=== PATIENT | male | born 1945 | race Caucasian/White ===

== ENCOUNTER → 2020-12-07 12:57 | Outpatient (BNVA) | payer MEDICARE, SELFPAY | PROVIDERS: Family Provider Family Medicine; PCP Family Medicine; Visit Provider Nurse Practitioner Family | DX: M79.671 Pain in right foot (principal) | CPT/HCPCS: 73630 ==

== ENCOUNTER → 2023-05-02 08:53 | Outpatient (BNVA) | payer MEDICARE, SELFPAY | PROVIDERS: Family Provider Family Medicine; PCP Family Medicine; Visit Provider Nurse Practitioner Family | DX: M17.12 Unilateral primary osteoarthritis, left knee (principal) | CPT/HCPCS: 73562 ==

== ENCOUNTER → 2023-05-30 16:06 | Outpatient (BNVA) | payer MEDICARE, SELFPAY | PROVIDERS: Family Provider Family Medicine; PCP Family Medicine; Visit Provider Specialist | DX: M17.0 Bilateral primary osteoarthritis of knee | CPT/HCPCS: 73560; 73565; 99204 ==

== ENCOUNTER → 2023-08-08 08:17 | Outpatient (BNVA) | payer MEDICARE, SELFPAY | PROVIDERS: Family Provider Family Medicine; PCP Family Medicine; Visit Provider Specialist | DX: M17.10 Unilateral primary osteoarthritis, unspecified knee (principal); M25.569 Pain in unspecified knee; Z01.818 Encounter for other preprocedural examination | CPT/HCPCS: 80053; 81000; 85025 ==

== ENCOUNTER 2023-08-09 16:19 | Outpatient (CLI) | payer MEDICARE, SELFPAY ==
--- NOTE | 2023-08-09 16:30 | CT_ITS ---
WS: [id number] CT LEFT knee, noncontrast HISTORY: M17.10 - Unilateral primary osteoarthritis, unspecified knee TECHNIQUE: Protocol for PAIGE total knee replacement has been obtained. This includes axial imaging th rough the LEFT hip, LEFT knee and LEFT ankle. DLP: 1091.72 mGy.cm COMPARISON: Radiograph 05/30/2023 Pelvis: Status post LEFT hip arthroplasty. Bilateral mild SI joint arthritis. LEFT knee: Advanced tricompartment osteoarthritic changes. Large osteophytes and joint space narrowin g. Small suprapatellar joint effusion. LEFT ankle: Negative. IMPRESSION: CT imaging provided for [facility] robotic total knee replacement.
== END 2023-08-09 16:20 | disposition home or self-care (01) ==
LOC: RAD 16:19
PROVIDERS: Family Provider Family Medicine; PCP Family Medicine; Visit Provider Nurse Practitioner
DX: M17.12 Unilateral primary osteoarthritis, left knee (principal); Z98.890 Other specified postprocedural states
CPT/HCPCS: 73700; 80053; 81000; 85025

== ENCOUNTER 2023-08-14 12:58 | Observation (INO) | payer MEDICARE, SELFPAY ==
[2023-08-14] VITALS (13 sets, daily range): BP systolic 72–168; BP diastolic 46–99; PULSE 52–73; RESP 16–22; TEMP 36.1–36.6; O2SAT 93–97; BMI 36.5
--- NOTE | 2023-08-14 06:37 | P.HPUD_ITS ---
Surgery/Procedure H&P Update DATE OF PROCEDURE: August 14, 2023 DATE H&P PERFORMED: 08/13/23 H&P UPDATE INFORMATION: I have reviewed H&P completed within last 30 days, I have examined patient prior to procedure, No changes to prior documentation and H&P is in [facility] EMR on date indicated PLANNED PROCEDURE: Operation Date: 08/14/23 07:00 Proposed Procedures p LEFT TOTAL KNEE ARHTROPLASTY 73077,M17.10(Left) - Aracelis Manzo MD Related Problem List Diagnoses (1) Primary osteoarthritis of left knee:
[2023-08-14] MEDS: sodium chloride 0.9% 1,000 ML 30 ML IV (07:05)
[2023-08-14] MEDS: acetaminophen 1,000 MG/100 ML PIGGYBACK 400 MG IV ×3 (07:07→22:34)
[2023-08-14] MEDS: gabapentin 300 mg Capsule PO (07:08)
[2023-08-14] MEDS: CELEcoxib 200 mg Capsule 400 MG PO (07:08)
[2023-08-14] MEDS: ceFAZolin 2,000 MG in sodium chloride 0.9% (plus) 50 ML 100 MG IV ×3 (07:17→23:01)
--- NOTE | 2023-08-14 08:03 | ANES.PREANE2 ---
Pre-Anesthetic Assessment Height/Weight: Height 1.73 m Weight 108.862 kg Temp Pulse Resp BP Pulse Ox O2 Del Method 97 F L 69 18 163/99 97 Room Air 08/14/23 06:11 08/14/23 06:11 08/14/23 06:11 08/14/23 06:11 08/14/23 06:11 08/14/23 06:17 Operation Date: 08/14/23 07:00 Proposed Procedures p LEFT TOTAL KNEE ARHTROPLASTY 57325,M17.10(Left) - Aracelis Manzo MD Was Beta Kamari taken within 24 hours: N/A Was Clonidine taken within 24 hours: N/A Last intake: Intake Last Liquid Date 08/13/23 Last Liquid Time 18:30 Last Solid Date 08/13/23 Last Solid Time 18:30 Social No tobacco Exam alert and oriented x 3 Airway Submandibular: within normal limits Cervical ROM: within normal limits Mallampati: Class II History/ROS No significant history except as noted and No significant complaints Pulmonary Sleep Apnea Uses CPAP CV/HEM Hypertension Metabolic Morbid Obesity Musc/skel Lower Back Pain and Osteoarthritis/DJD Hx lumbar spine surgery Anesthetic Plan ASA status: 3 Anesthesia: General and Regional (specify below) Other: Spinal w/ adductor canal block; general w LMA backup Risk of > 500 ml blood loss (7ml/kg in children): No Medications/Allergies Home Medications Medication Instructions Recorded Confirmed Last Taken Type ibuprofen 200 mg capsule 200 mg PO Q6H PRN Pain 11/16/20 08/13/23 08/09/23 History allopurinol 100 mg tablet 100 mg PO QDAY #100 tabs 03/28/23 08/13/23 08/13/23 Rx air mini auto set travel cpap #1 ea 06/19/23 Unknown Rx machine cpap hose tubing #1 ea 06/19/23 Unknown Rx zephair air mini universal adaptor #1 ea 06/19/23 Unknown Rx Heated moisture exchnge unit for cpap triamterene 37.5 1 tab PO QAM #100 tabs 07/18/23 08/13/23 08/13/23 Rx mg-hydrochlorothiazide 25 mg tablet losartan 25 mg tablet 25 mg PO DAILY 08/09/23 08/13/23 08/13/23 History Allergies Allergy/AdvReac Type Severity Reaction Status Date / Time No Known Allergies Allergy Verified 08/09/23 14:14 Current Medications Generic Name Dose Route Start Last Admin Trade Name Freq PRN Reason Stop Dose Admin Sodium Chloride 1,000 mls @ 30 mls/hr 08/14/23 06:00 08/14/23 07:05 Sodium Chloride 0.9% IV 08/15/23 05:59 30 mls/hr .Q24H JACEK Administration PFSH Anesthesia Medical History Hypertension Gout Surgical History History of meniscectomy of right knee H/O arthroscopy H/O total hip arthroplasty Family History Other Cancer Social History Smoking and tobacco/nicotine status: never used tobacco/nicotine Alcohol intake: current Alcohol intake frequency: few times a week Data Anesthesia Cardiac Studies: No Data to Display
[2023-08-14] MEDS: tranexamic acid 1,000 mg/10mL SDV 1000 MG IV (08:05)
[2023-08-14] MEDS: BUPivacaine liposome 13.3 mg/mL SDV 10 mL 266 MG INFILTRATI (08:23)
[2023-08-14] MEDS: BUPivacaine 0.5% INJ 30 mL 20 ML INJECTION (08:23)
[2023-08-14] MEDS: vancomycin 1,000 MG SDV 1000 MG XX (08:23)
[2023-08-14] MEDS: ceFAZolin 1,000 mg SDV 2000 MG IRRIGATION (08:24)
--- NOTE | 2023-08-14 11:37 | P.OP_ITS ---
Operative Report Date of procedure: August 14, 2023 Pre-op diagnosis: Severe degenerative osteophyte left knee with valgus deformity and osteophyte formation Post-op diagnosis: Severe degenerative osteophyte left knee with valgus deformity and osteophyte formation Post-op findings: Severe valgus deformity with flexion contracture. Complete denudement of cartilage particularly from the lateral femoral condyle consistent with valgus deformity. Procedure done: Left total knee arthroplasty with Eric guidance Implants: The [employer] total knee system with a size 6 triathlon beaded cruciate retaining femur left, a triathlon titanium tibial component size 6 beaded, a triathlon X3 tibial bearing CS insert size 6 X 9 mm and a beaded triathlon titanium asymmetric patella size 38 x 11 mm Specimens removed/disposition: Bone, disposed Surgeon: Aracelis Manzo MD Sports Marketing Specialist: Kirsten Barlow, nurse practitioner, services were required for exposure, retraction, implant placement, and closure. Anesthesia: Spinal (With MAC, ASA 3) Estimated blood loss (mL): 350 Tourniquet time (min): 0 (Not utilized) IV fluids (mL): 1,800 Urine output (mL): 200 Complications: None Findings: Severe degenerative osteoarthritis with valgus deformity and flexion contracture. Complete denudement of cartilage particularly from the lateral com partment. Condition: stable Disposition: PACU (Then to floor for postoperative rehabilitation and pain management) Brief History: This 78-year-old gentleman initially presented to my office in May 2023. Had severe left knee pain which was limiting him in his activities of daily living. He had had no recent injury, but he had had a prior anterior cruciate ligament tear. The patient described pain when standing from a kneeling position or doing any sort of twisting on the knee. He had participated at home physical therapy focusing on quad strength without relief. He denied any prior injection therapy. At the time of initial visit, he wished to consider injection therapy versus total knee arthroplasty as he had significant deformity and severe degenerative osteoarthritic changes. After consideration, the patient wished to proceed with total knee arthroplasty and he was scheduled for Eric guided total knee arthroplasty. Risks and complications were discussed with the patient. On the day of surgery, consents were signed and questions were further answered. He was seen with his . Procedure: The patient was brought to the operating theater, and after undergoing spinal anesthetic, with supplemental adductor canal block, ASA 3, the left lower extremity was prepped with Dura-Prep and draped in usual fashion following placement of a tourniquet high on the leg. The leg was then draped free.? Tourniquet was not elevated during the case.? A surgical pause was performed, and at the time of the surgical pause, we confirmed the site and side of surgery. Additionally, we confirmed the appropriate and timely administration of preoperative antibiotics, Ancef 2 g.? The availability of equipment was confirmed, and the patient's identity was verbalized as well.? Following the surgical pause, an incision was made centering over the patella continuing proximally and distally as necessary to allow access to the knee joint. Dissection continued through skin and soft tissues using a scalpel. Hemostasis was obtained using electrocautery. The skin incision was followed by a median parapatellar arthrotomy. The leg was extended and the patella was able to be displaced laterally.? Appropriate arrays and markers were placed in appropriate position for use of the Eric.? Preoperative planning had been accomplished and was discussed in detail with the [facility] physician relations representative.? Intraoperative mapping of the femur and tibia was accomplished after the arrays were placed.? Internal markers were also placed.? Once we had accomplished the Eric mapping, we began the appropriate resections for placement of the prosthesis.? The plan was for a cruciate retaining right total knee arthroplasty. Once appropriate mapping had been accomplished retraction was established using manual retraction by surgical technicians and also the Eric leg positioner and retractors.? The knee was evaluated.? There was significant osteoarthritic change as well as slight flexion contracture.? Appropriate bone resection was accomplished using the Eric.? The femur was sized to a size 6.? Following femoral cuts, attention was directed to the tibia to confirm appropriate size of the tibial tray. The tibial osteotomy had been initiated at the beginning of the Eric procedure, the proximal tibial resection was removed, and the proximal tibia was measured.? Osteophytes were removed prior to this portion of the procedure.? We had performed a minimal medial release at the beginning of the procedure to allow for placement of the array.? Proximal tibia was evaluated, and it was felt that appropriate size for the tibia was a size 6.? Tray was noted to fit nicely with good coverage.? Rim fit was accomplished with the size 6. A trial reduction was accomplished after osteophytes have been removed as well as the medial and lateral menisci.? We had removed the anterior cruciate ligament at the beginning of the case and preserved the posterior cruciate ligament.? Trial reduction was accomplished with a size 6 femoral cruciate retaining component and a size 6 CS tibial bearing insert which was 9 mm in thickness.? Alignment was felt to be appropriate as well.? Trial components were removed after the femur had been drilled.? Prior to removal of the tibial tray which had been pinned in position with appropriate rotation as determined by the Eric plan, we broached the tibia.? Subsequently, the 4 drill holes were made for the prosthetic component.? All trial components were removed, and the wound was irrigated.? Plans were made for insertion of the prosthetic components.? Prior to this, the patella was manually prepared.? After resection of the articular surface with the jogging system, it was measured and measured a 38 mm patella.? We resected approximately 11 mm of patella.? Patellar height was restored with the patellar component. Once again, the wound was irrigated.? The Tritanium tibia was impacted into position.? The beaded femur was then impacted into position in a cementless fashion. The CS tibial insert was placed prior to placement of the femoral component. The patella was pressed into position with a patellar clamp.? Exparel was injected about the components deep and superficially.? The knee was then copiously irrigated with betadine and saline and suctioned dry. Attention was then directed to closure. Closure was accomplished with 0 Vicryl in the fascial tissues.? The suture line of 0 Vicryl was supplemented with strata fix, #1, with a running stitch from proximal to distal and a second running stitch from distal to proximal.? This was followed by Surgiflo and vancomycin powder.? Following this, a 2-0 Monocryl was used in the subcutaneous tissues, and the skin was closed with 3-0 Strata fix.? Care was taken to assure an excellent subcutaneous as well as skin closure.? A sterile dressing was then placed consisting of Dermabond Prineo, OpSite, ABD, sterile soft roll, and an Lenny wrap including over the foot. The patient was returned the Recovery Room in a satisfactory condition. X-rays were obtained and reviewed there.? The patient will be discharged to the floor for postoperative rehabilitation and pain management. Related Problem List Diagnoses (1) Primary osteoarthritis of left knee:
--- NOTE | 2023-08-14 11:51 | XR_ITS ---
WS: [id number] XR knee LT 1-2V 03445 REASON FOR EXAM: Status post left total knee arthroplasty FINDINGS: Left total knee arthroplasty. Components of the arthroplasty are intact and in proper position and alignment. No focal bone abnormality. IMPRESSION: Left knee total arthroplasty without abnormality.
[2023-08-14] MEDS: chlorhexidine gluconate 0.12% Btl 473 mL 30 ML MUCOUS MEM ×2 (13:52→20:55)
[2023-08-14] MEDS: CELEcoxib 200 mg Capsule PO (15:02)
[2023-08-14] MEDS: tranexamic acid 1,000 MG/100 ML PREMIX 600 MG IV (16:06)
--- NOTE | 2023-08-14 16:54 | ANE.PACU2 ---
Inpatient post-anesthesia follow up: Airway intact: Yes Vital signs: Temperature 97.4 F Pulse Rate 58 Respiratory Rate 22 Blood Pressure 103/62 Pulse Oximetry 97 Oxygen Delivery Me thod Room Air Oxygen Flow Rate Fraction of Inspir ed Oxygen Hydration adequate: Yes Nausea and vomiting: No Pain level: 1 Mental status: Baseline
[2023-08-14] MEDS: iron polysaccharide complex 150 mg Capsule PO (18:19)
[2023-08-14] MEDS: sennosides-docusate Tablet 2 TAB PO (18:19)
[2023-08-14] MEDS: mupirocin oint 22 gm 1 APPLIC NASAL (18:20)
[2023-08-14] MEDS: oxyCODONE 5 mg IR Tab/Cap PO (21:22)
[2023-08-15] MEDS: CELEcoxib 200 mg Capsule PO ×2 (02:58→14:14)
[2023-08-15 05:13] VITALS: BP 133/82; PULSE 76; RESP 18; TEMP 36.8; O2SAT 94
[2023-08-15 05:14] LABS: Basophils # 0.1 10^3/uL (0.0-0.1); Basophils % 0.7 %; Eosinophils # 0.2 10^3/uL (0.0-0.8); Eosinophils % 1.6 %; Hematocrit 32.7 % (37-53); Lymphocytes # 2.1 10^3/uL (0.8-4.8); Lymphocytes % 21.9 %; Mean Corpuscular HGB Conc 33.9 g/dL (30-55); Mean Corpuscular Hemoglobin 32.4 pg (27-33); Mean Corpuscular Volume 95.3 fl (82-101); Mean Platelet Volume 10.3 fL (7.4-10.4); Monocytes # 1.3 10^3/uL (0.2-0.9); Monocytes % 13.2 %; Neutrophils # 5.94 10^3/uL (1.8-7.7); Neutrophils % 62.2 %; Nucleated Red Blood Cells % 0 %; Platelet Count 268 10^3/cmm (157-399); Red Blood Count 3.43 10^6/uL (3.85-5.65); Red Cell Distribution Width 12.3 % (12.1-15.1); White Blood Count 9.55 10^3/uL (3.29-11.43)
[2023-08-15 05:32] LABS: Blood Urea Nitrogen 24 mg/dL (8-23); Calcium 8.5 mg/dL (8.5-10.5); Carbon Dioxide 26 mmol/L (22-29); Chloride 102 mmol/L (98-107); Glucose 193 mg/dL (65-115); Osmolality Calculated 291 mOsm/kg (285-295); Sodium 136 mmol/L (136-145)
[2023-08-15] MEDS: acetaminophen 1,000 MG/100 ML PIGGYBACK 400 MG IV (07:21)
[2023-08-15] MEDS: iron polysaccharide complex 150 mg Capsule PO (07:22)
[2023-08-15] MEDS: ceFAZolin 2,000 MG in sodium chloride 0.9% (plus) 50 ML 100 MG IV (07:25)
[2023-08-15 08:53] VITALS: BP 143/75
[2023-08-15] MEDS: cholecalciferol (vitamin D3) 1,000 unit Tablet 1000 UNIT PO (08:53)
[2023-08-15] MEDS: losartan 50 mg Tablet 25 MG PO (08:53)
[2023-08-15] MEDS: sennosides-docusate Tablet 2 TAB PO (08:56)
[2023-08-15] MEDS: multivitamin therapeutic Tablet 1 TAB PO (08:56)
[2023-08-15] MEDS: allopurinol 100 mg Tablet PO (08:57)
[2023-08-15] MEDS: aspirin 325 mg EC Tablet PO (08:57)
[2023-08-15] MEDS: mupirocin oint 22 gm 1 APPLIC NASAL (08:58)
[2023-08-15] MEDS: chlorhexidine gluconate 0.12% Btl 473 mL 30 ML MUCOUS MEM (08:58)
[2023-08-15 09:04] VITALS: BP 143/75; PULSE 64; RESP 17; TEMP 37.2; O2SAT 93
--- NOTE | 2023-08-15 13:10 | P.DS_ITS ---
Discharge Providers Date of Admission: 08/14/23 12:58 Date of Discharge: August 15, 2023 Attending Provider at Admission: Aracelis Manzo MD Attending Provider at Discharge: Aracelis Manzo MD Primary Care Provider: Boston Arredondo DO Diagnoses at Discharge Discharge Diagnosis (1) Status post total left knee replacement not using cement: Status: Acute Permanent problem details: Date of procedure: August 14, 2023 Diagnosis: Severe degenerative osteophyte left knee with valgus deformity and osteophyte formation Post-op findings: Severe valgus deformity with flexion contracture. Complete denudement of cartilage particularly from the lateral femoral condyle consistent with valgus deformity. Procedure done: Left total knee arthroplasty with Eric guidance Implants: The [employer] total knee system with a size 6 triathlon beaded cruciate retaining femur left, a triathlon titanium tibial component size 6 beaded, a triathlon X3 tibial bearing CS insert size 6 X 9 mm and a beaded triathlon titanium asymmetric patella size 38 x 11 mm (2) Primary osteoarthritis of left knee: Status: Acute Reason for Visit Reason for Visit: 72855 M17.10 Brief History: This 78-year-old gentleman initially presented to my office in May 2023. Had severe left knee pain which was limiting him in his activities of daily living. He had had no recent injury, but he had had a prior anterior cruciate ligament tear. The patient described pain when standing from a kneeling position or doing any sort of twisting on the knee. He had participated at home physical therapy focusing on quad strength without relief. He denied any prior injection therapy. At the time of initial visit, he wished to consider injection therapy versus total knee arthroplasty as he had significant deformity and severe degenerative osteoarthritic changes. After consideration, the patient wished to proceed with total knee arthroplasty and he was scheduled for Eric guided total knee arthroplasty. Risks and complications were discussed with the patient. On the day of surgery, consents were signed and questions were further answered. He was seen with his . Hospital Course Hospital Course Patient was admitted under observation status postoperatively. He did well with physical therapy and did well with pain management. Therefore, the patient was considered appropriate for discharge to home. Home therapies were discussed with the patient. He will follow-up in the office as previously scheduled. There was no evidence of DVT at the time of discharge. Range of motion was improving. He was independent and felt to be safe for this discharge. Physical Exam Const: COMMON NORMALS: no acute distress, average body habitus, patient oriented x3 and alert GENERAL APPEARANCE: cooperative and comfortable ORIENTATION/CONSCIOUSNESS: Yes awake HENMT: COMMON NORMALS: normocephalic and atraumatic HEAD & SCALP: normocephalic and atraumatic Eye: GENERAL EYE: appearance normal, both eyes and all related structures Chest: COMMONS NORMALS: normal inspection of the chest Resp: COMMON NORMALS: normal respiratory effort EFFORT & INSPECTION: Yes able to speak in complete sentences and Yes symmetric chest movement Extremity: LEFT LOWER EXTREMITY: Yes knee joint (Large outer dressing is removed) Left knee: Yes neurovascular exam (Intact distally with no evidence of DVT) Neuro: COMMON NORMALS: patient oriented x3 SENSORIUM/ORIENTATION: Yes alert Psych: COMMON NORMALS: mental status grossly normal APPEARANCE: Yes grossly normal ATTITUDE: Yes calm and Yes engaged ATTENTION/CONCENTRATION: Yes attention grossly intact Skin: COMMON NORMALS: no rashes or lesions noted GENERAL SKIN EXAM: no rashes or lesions noted Urinary Catheter Management: Montilla: Cath Placed During This Visit: yes, but has since been removed by the nurse Reason for Continuing Indwelling Catheter: Decision to DC Catheter Urinary Catheter Date of Insertion: 08/14/23 Urinary Catheter Time of Insertion: 07:45 Date Urinary Catheter Removed: 08/15/23 Time Urinary Catheter Discontinued: 04:30 Discharge Data Studies Completed and Pending Completed Studies During Hospitalization Category Date Time Status XR knee LT 1-2V 48371 Routine Exams 08/14/23 11:51 Completed Pending at discharge Category Date Time Status Complete Blood Count w/Auto AM LABS Lab 08/16/23 04:00 Ordered Complete Blood Count w/Auto AM LABS Lab 08/17/23 04:00 Ordered Laboratory Results WBC 9.55 10^3/uL (3.29-11.43) 08/15/23 04:52 RBC 3.43 10^6/uL (3.85-5.65) L 08/15/23 04:52 Hgb 11.10 g/dL (11.27-16.99) L 08/15/23 04:52 Hct 32.7 % (37-53) L 08/15/23 04:52 MCV 95.3 fl (82-101) 08/15/23 04:52 MCH 32.4 pg (27-33) 08/15/23 04:52 MCHC 33.9 g/dL (30-55) 08/15/23 04:52 RDW 12.3 % (12.1-15.1) 08/15/23 04:52 Plt Count 268 10^3/cmm (157-399) 08/15/23 04:52 MPV 10.3 fL (7.4-10.4) 08/15/23 04:52 Neut % (Auto) 62.2 % 08/15/23 04:52 Lymph % (Auto) 21.9 % 08/15/23 04:52 Foard % (Auto) 13.2 % 08/15/23 04:52 Eos % (Auto) 1.6 % 08/15/23 04:52 Baso % (Auto) 0.7 % 08/15/23 04:52 Neut # (Auto) 5.94 10^3/uL (1.8-7.7) 08/15/23 04:52 Lymph # (Auto) 2.1 10^3/uL (0.8-4.8) 08/15/23 04:52 Foard # (Auto) 1.3 10^3/uL (0.2-0.9) H 08/15/23 04:52 Eos # (Auto) 0.2 10^3/uL (0.0-0.8) 08/15/23 04:52 Baso # (Auto) 0.1 10^3/uL (0.0-0.1) 08/15/23 04:52 Nucleated RBC % (auto) 0 % 08/15/23 04:52 Nucleated RBCs # 0.0 /100WBC 08/15/23 04:52 Sodium 136 mmol/L (136-145) 08/15/23 04:52 Potassium 4.0 mmol/L (3.5-5.1) 08/15/23 04:52 Chloride 102 mmol/L (98-107) 08/15/23 04:52 Carbon Dioxide 26 mmol/L (22-29) 08/15/23 04:52 Anion Gap 12.0 (5-19) 08/15/23 04:52 BUN 24 mg/dL (8-23) H 08/15/23 04:52 Creatinine 1.4 mg/dL (0.7-1.2) H 08/15/23 04:52 GFR Calculation Not Reportable 08/15/23 04:52 Glucose 193 mg/dL (65-115) H 08/15/23 04:52 Calculated Osmolality 291 mOsm/kg (285-295) 08/15/23 04:52 Calcium 8.5 mg/dL (8.5-10.5) 08/15/23 04:52 Vitals Last Vital Signs Temp 99.0 F 08/15/23 09:04 Pulse 64 08/15/23 09:04 Resp 17 08/15/23 09:04 BP 143/75 08/15/23 09:04 Pulse Ox 93 08/15/23 09:04 O2 Del Method Room Air 08/15/23 09:04 Discharge Plan Discharge Patient Disposition: Home Health Service Condition: Stable Prescriptions: New acetaminophen 500 mg Tablet 1,000 mg PO Q8H Qty: 0 0RF aspirin 325 mg Tablet,Delayed Release (Dr/Ec) 325 mg PO DAILY Qty: 0 0RF celecoxib 200 mg Capsule 200 mg PO 1XD 30 Days Qty: 30 0RF oxycodone 5 mg Tablet 5 mg PO Q4H PRN (Reason: Moderate Pain) 7 Days Qty: 30 0RF Continued losartan 25 mg tablet 25 mg PO DAILY allopurinol 100 mg tablet 100 mg PO QDAY Qty: 100 0RF (DME) zephair air mini universal adaptor Heated moisture exchnge unit for cpap See Rx Instructions .Route .MEDSUPPLY Qty: 1 0RF Rx Instructions: As directed (DME) cpap hose tubing See Rx Instructions .Route .MEDSUPPLY Qty: 1 0RF Rx Instructions: 6 foot long, 19 diameter with 22mm rubber ends (DME) air mini auto set travel cpap machine See Rx Instructions .Route .MEDSUPPLY Qty: 1 0RF Rx Instructions: As directed triamterene-hydrochlorothiazid 37.5-25 mg tablet 1 tab PO QAM Qty: 100 5RF Discontinued ibuprofen 200 mg capsule 200 mg PO Q6H PRN (Reason: Pain) Discharge Orders: Discharge Order (Routine); Ordered 08/15/23 Ordered By: Aracelis Manzo Referrals: [facility] ([facility]) [Outside] Aracelis Manzo MD [Physician] - 08/27/23 9:00 am Discharge Diet: Advance as tolerated and Usual diet Discharge Activity: Increase activity as tolerated, Limit activity as instructed, Use walker/crutches as instructed and As per PT/OT instructions Patient Instructions: Precautions after Total Joint Replacement Surgery (DC), Operative Knee Arthroscopy (DC), Opioid Safety Activity Restrictions/Additional Instructions: Ice and Elevate left lower extremity. Range of motion and strengthening as per PT, Full weight bearing ambulation. Discharge Attestations Time Spent in Discharge Care*: greater than 30 min Specific Discharge Activities: educating patient, documenting/other paperwork and evaluating patient/reviewing data Quality Metrics Clinical Quality Measures [ No reported AMI, CVA or VTE this stay] Coding Level of Care Code Acute Code for Chg Fwd Diagnoses Status post total left knee replacement not using cement Z96.652 Primary osteoarthritis of left knee M17.12
[2023-08-15 14:03] VITALS: BP 161/76; PULSE 81; RESP 17; TEMP 36.8; O2SAT 94
[2023-08-15 14:14] VITALS: RESP 16
[2023-08-15] MEDS: oxyCODONE 5 mg IR Tab/Cap PO (14:14)
[2023-08-15 14:30] VITALS: BP 161/76; PULSE 81; RESP 16; TEMP 36.8; O2SAT 94
== END 2023-08-15 14:30 | disposition home health service (06) ==
LOC: OBGYN 14:34
PROVIDERS: Nurse Practitioner; Admitting Provider Specialist; PCP Family Medicine; Visit Provider Specialist
PROC: 8E0Y0CZ Robotic Assisted Procedure of Lower Extremity, Open Approach (ICD-10-PCS; CPT 27447; principal; 2023-08-14 07:00)
DX: M17.12 Unilateral primary osteoarthritis, left knee (principal); M21.062 Valgus deformity, not elsewhere classified, left knee; G47.30 Sleep apnea, unspecified; I10 Essential (primary) hypertension; E66.01 Morbid (severe) obesity due to excess calories; Z68.36 Body mass index [BMI] 36.0-36.9, adult
CPT/HCPCS: 20985; 27447; 36415; 51702; 73560; 80048; 85025; 97110; 97116; 97161; 97165; C1776; C9290; G0378; J0131; J0690; J2250; J2371; J2704; J2795; J3370; J3490; J7030

== ENCOUNTER 2023-08-29 06:00 | Outpatient (RCR) | payer MEDICARE, SELFPAY | END 2023-09-05 23:59 | disposition home or self-care (01) | LOC: GPT 06:00 | PROVIDERS: Visit Provider Specialist | DX: Z47.1 Aftercare following joint replacement surgery (principal); Z96.652 Presence of left artificial knee joint | CPT/HCPCS: 97110; 97140; 97161; 99024 ==

== ENCOUNTER → 2023-08-29 15:45 | Outpatient (BNVA) | payer MEDICARE, SELFPAY | PROVIDERS: Visit Provider Nurse Practitioner | DX: Z96.652 Presence of left artificial knee joint (principal); M17.12 Unilateral primary osteoarthritis, left knee; Z47.1 Aftercare following joint replacement surgery | CPT/HCPCS: 73560; 73565; 97110; 97140; 97161; 99024 ==

== ENCOUNTER 2023-09-06 06:00 | Outpatient (RCR) | payer MEDICARE, SELFPAY | END 2023-10-04 23:59 | disposition home or self-care (01) | LOC: GPT 06:00 | PROVIDERS: Visit Provider Specialist | DX: Z47.1 Aftercare following joint replacement surgery (principal); Z96.652 Presence of left artificial knee joint | CPT/HCPCS: 97110; 97112; 97140 ==

== ENCOUNTER → 2023-09-19 08:34 | Outpatient (BNVA) | payer MEDICARE, SELFPAY | PROVIDERS: Visit Provider Family Medicine | DX: Z96.652 Presence of left artificial knee joint (principal); E78.2 Mixed hyperlipidemia; Z79.899 Other long term (current) drug therapy | CPT/HCPCS: 80053; 80061; 85025 ==

== ENCOUNTER → 2023-09-26 15:56 | Outpatient (BNVA) | payer MEDICARE, SELFPAY | PROVIDERS: Visit Provider Nurse Practitioner | DX: Z96.652 Presence of left artificial knee joint (principal); M17.12 Unilateral primary osteoarthritis, left knee | CPT/HCPCS: 99024 ==

== ENCOUNTER 2023-10-05 06:00 | Outpatient (RCR) | payer MEDICARE, SELFPAY | END 2023-11-04 23:59 | disposition home or self-care (01) | LOC: GPT 06:00 | PROVIDERS: Visit Provider Specialist | DX: Z47.1 Aftercare following joint replacement surgery (principal); Z96.652 Presence of left artificial knee joint | CPT/HCPCS: 97110 ==

== ENCOUNTER → 2024-04-17 13:58 | Outpatient (BNVA) | payer MEDICARE, SELFPAY | PROVIDERS: Visit Provider Nurse Practitioner Family | DX: M25.511 Pain in right shoulder (principal); M19.011 Primary osteoarthritis, right shoulder | CPT/HCPCS: 73030 ==

== ENCOUNTER → 2024-08-13 09:25 | Outpatient (BNVA) | payer MEDICARE, SELFPAY | PROVIDERS: PCP Family Medicine; Visit Provider Specialist | DX: M25.561 Pain in right knee (principal); M17.11 Unilateral primary osteoarthritis, right knee; Z96.652 Presence of left artificial knee joint | CPT/HCPCS: 73560; 73565; 99214 ==

== ENCOUNTER 2024-10-06 14:30 | Outpatient (CLI) | payer MEDICARE, SELFPAY ==
--- NOTE | 2024-10-06 14:30 | CT_ITS ---
WS: [id number] CT RIGHT KNEE, NONCONTRAST TECHNIQUE: Noncontrast CT of the RIGHT knee to include the RIGHT hip and ankle. CLINICAL INFORMATION: [facility] COMPARISON: None. DLP: 940.[address] scans at [facility] use at least one of these dose optimization techniques: automated exposure control; mA and/or kV adjustment per patient size (includes targeted exams where dose is matched to clinical indication); or iterative reconstruction. FINDINGS: Prior postoperative changes LEFT TKA. Advanced tricompartmental arthritis RIGHT knee. Hypertrophic changes L5-S1 similar to the prior lumbar spine CT partially visualized. Fat-containing LEFT greater than RIGHT inguinal hernias. Postoperative changes LEFT [place] degrades images in the pelvis. Enlarged prostate measuring 6.5 cm. Recommend correlation PSA. Evidence of bladder outlet obstruction. Sigmoid diverticulosis. Advanced arthritis of the pubic symphysis. Advanced tricompartment arthritis RIGHT knee with hypertrophic changes. Moderate suprapatellar effusion. Subchondral cystic changes. Vascular calcification. CT/CT knee RT [facility] [id number] IMPRESSION: Images obtained for preoperative purposes. Markedly enlarged prostate. Recommend correlation PSA.
== END 2024-10-06 14:31 | disposition home or self-care (01) ==
PROVIDERS: PCP Family Medicine; Visit Provider Specialist
DX: M17.11 Unilateral primary osteoarthritis, right knee (principal); Z98.890 Other specified postprocedural states; R93.7 Abnormal findings on diagnostic imaging of other parts of musculoskeletal system; K40.20 Bilateral inguinal hernia, without obstruction or gangrene, not specified as recurrent; N40.0 Benign prostatic hyperplasia without lower urinary tract symptoms; R93.89 Abnormal findings on diagnostic imaging of other specified body structures; K57.30 Diverticulosis of large intestine without perforation or abscess without bleeding
CPT/HCPCS: 73700

== ENCOUNTER → 2024-10-23 08:29 | Outpatient (BNVA) | payer MEDICARE, SELFPAY | PROVIDERS: PCP Family Medicine; Visit Provider Specialist | DX: Z01.818 Encounter for other preprocedural examination (principal) | CPT/HCPCS: 80053; 81000; 85025 ==

== ENCOUNTER → 2024-10-27 11:47 | Outpatient (BNVA) | payer MEDICARE, SELFPAY | PROVIDERS: PCP Family Medicine; Visit Provider Family Medicine | DX: Z01.818 Encounter for other preprocedural examination (principal); I44.0 Atrioventricular block, first degree; R94.31 Abnormal electrocardiogram [ECG] [EKG] | CPT/HCPCS: 93005 ==

== ENCOUNTER 2024-11-11 11:05 | Observation (INO) | payer MEDICARE, SELFPAY ==
[2024-11-11] VITALS (16 sets, daily range): BP systolic 95–169; BP diastolic 53–112; PULSE 55–71; RESP 16–18; TEMP 36.6–36.9; O2SAT 57–99; BMI 36.9
[2024-11-11] MEDS: CELEcoxib 200 mg Capsule 400 MG PO (06:58)
[2024-11-11] MEDS: gabapentin 300 mg Capsule PO (06:58)
[2024-11-11] MEDS: acetaminophen 1,000 MG/100 ML PIGGYBACK 400 MG IV ×3 (06:59→23:34)
[2024-11-11] MEDS: sodium chloride 0.9% 1,000 ML 30 ML IV (06:59)
--- NOTE | 2024-11-11 06:59 | W.PM.OPSUD ---
Surgery/Procedure H&P Update DATE OF PROCEDURE: November 11, 2024 DATE H&P PERFORMED: 10/27/24 H&P UPDATE INFORMATION: I have reviewed H&P completed within last 30 days, I have examined patient prior to procedure, No changes to prior documentation, H&P is in [facility] EMR on date indicated and Risks and benefits of the procedure reviewed PREOP DIAGNOSIS: Primary osteoarthritis right knee PLANNED PROCEDURE: Operation Date: 11/11/24 08:10 Proposed Procedures p Eric Robot Total Knee Arthroplasty(Right) - Aracelis Manzo MD Related Problem List Diagnoses (1) Primary osteoarthritis of right knee:
--- NOTE | 2024-11-11 07:25 | ANES.PREANE2 ---
Pre-Anesthetic Assessment Height/Weight: Height 5 ft 8 in Weight 243 lb Temp Pulse Resp BP Pulse Ox O2 Del Method 98.5 F 62 18 169/112 93 Room Air 11/11/24 06:49 11/11/24 06:49 11/11/24 06:49 11/11/24 06:49 11/11/24 06:49 11/11/24 06:50 Preop Diagnosis: Primary osteoarthritis right knee Operation Date: 11/11/24 08:10 Proposed Procedures p Eric Robot Total Knee Arthroplasty(Right) - Aracelis Manzo MD Was Beta Kamari taken within 24 hours: N/A Was Clonidine taken within 24 hours: N/A Last intake: Intake Last Liquid Date 11/10/24 Last Liquid Time 18:00 Last Solid Date 11/10/24 Last Solid Time 18:00 Social No alcohol and No tobacco Exam alert, oriented x 3, clear to auscultation bilaterally and regular rate & rhythm Airway Submandibular: within normal limits Cervical ROM: within normal limits Mallampati: Class II Dentition: full Anesthetic Plan ASA status: 2E Anesthesia: General Other: No prior issues with anesthesia NPO since yesterday evening History of hypertension on losartan. Preop BP 169/112 HENRY, controlled with CPAP EKG showing sinus rhythm with first-degree AV block Labs 10/23/2024 reviewed and acceptable for procedure Plan for general anesthesia Medications/Allergies Home Medications ?Medication ?Instructions ?Recorded ?Confirmed ?Last Taken ?Type zephair air mini universal adaptor #1 ea 06/19/23 08/13/24 Unknown Rx Heated moisture exchnge unit for cpap allopurinol 100 mg tablet 100 mg PO QDAY #100 tabs 08/11/24 11/11/24 11/08/24 Rx losartan 25 mg tablet 25 mg PO BID #180 tabs 08/11/24 11/11/24 11/08/24 Rx triamterene 37.5 1 tab PO QAM #100 tabs 08/11/24 11/11/24 11/08/24 Rx mg-hydrochlorothiazide 25 mg tablet Allergies Allergy/AdvReac Type Severity Reaction Status Date / Time No Known Allergies Allergy Verified 11/11/24 07:11 Current Medications Generic Name Dose Route Start Last Admin Trade Name Freq PRN Reason Stop Dose Admin Sodium Chloride 1,000 mls @ 30 mls/hr 11/11/24 06:45 11/11/24 06:59 Sodium Chloride 0.9% IV 11/12/24 06:44 30 mls/hr .Q24H JACEK Administration PFSH Anesthesia Medical History Hypertension Gout Surgical History History of meniscectomy of right knee H/O arthroscopy H/O total hip arthroplasty Family History Other Cancer Social History Smoking and tobacco/nicotine status: never used tobacco/nicotine Alcohol intake: current Alcohol intake frequency: few times a week Data Anesthesia Cardiac Studies: No Data to Display
[2024-11-11] MEDS: ceFAZolin 2,000 mg SDV 2000 MG IVP ×3 (07:53→23:34)
[2024-11-11] MEDS: tranexamic acid 1,000 mg/10mL SDV 1000 MG IV (08:30)
[2024-11-11] MEDS: BUPivacaine 0.5% INJ 10 mL 20 ML XX (09:06)
[2024-11-11] MEDS: BUPivacaine liposome 13.3 mg/mL SDV 20 mL 266 MG XX (09:06)
[2024-11-11] MEDS: ceFAZolin 1,000 mg SDV 2000 MG IRRIGATION (09:08)
[2024-11-11] MEDS: VANCOMYCIN ADD-Vantage 1,000 MG VIAL 1000 MG XX (09:10)
--- NOTE | 2024-11-11 11:42 | P.OP_ITS ---
Operative Report Date of procedure: November 11, 2024 Pre-op diagnosis: Severe degenerative osteoarthritis right knee with large osteophytes, varus deformity, and severe flexion contracture Post-op diagnosis: Severe degenerative osteoarthritis right knee with large osteophytes, varus deformity, and severe flexion contracture Post-op findings: Large osteophytes and flexion with contracture with varus. Complete denudement of cartilage. Procedure done: Right total knee arthroplasty with Eric guidance Implants: The [employer] total knee system with a size 6 triathlon beaded cruciate retaining femur right, a triathlon titanium tibial component size 6 beaded, a triathlon X3 tibial bearing CS insert size 6 X 10 mm and a beaded triathlon titanium asymmetric patella size 38 x 11 mm Specimens removed/disposition: Bone, disposed of Pathology: None Surgeon: Aracelis Manzo MD Director Of Corporate Sales: Kirsten Barlow, nurse practitioner, services were required for exposure, retraction, implant placement, and closure. Anesthesia: General (Intubated, ASA 3) Estimated blood loss (mL): 800 Tourniquet time (min): 0 (Not utilized) IV fluids (mL): 1,700 (Crystalloid) IV fluids: 250 cc of albumin for a total of 1950 cc Urine output (mL): 250 Complications: None Findings: Severe degenerative osteoarthritis with varus deformity and flexion contracture. Large osteophytes. Condition: stable Disposition: PACU (Then admitted to floor under observation status for postoperative rehabilitation and pain management) Brief History: This 79-year-old gentleman presents today for right total knee arthroplasty. The patient previously underwent left total knee arthroplasty in August of this year. He has done well following this. He had multiple nonoperative therapies prior to proceeding with total knee arthroplasty. The patient has significant varus deformity and flexion contracture of the knee. In fact, he had significant deformities in the opposite knee, and following fixation of this feels a leg length difference. Risks and complications of surgery were discussed with him in the office. He wished to proceed with total knee arthroplasty under Eric guidance. Consents were signed and questions were answered. Procedure: The patient was brought to the operating theater, and after undergoing general anesthesia, intubated, ASA 3, the right lower extremity was prepped with Dura- Prep and draped in usual fashion following placement of a tourniquet high on the leg. The leg was then draped free.? Tourniquet was not elevated during the case.? A surgical pause was performed, and at the time of the surgical pause, we confirmed the site and side of surgery. Additionally, we confirmed the appropriate and timely administration of preoperative antibiotics, Ancef 2 g.? The availability of equipment was confirmed, and the patient's identity was verbalized as well.? Following the surgical pause, an incision was made centering over the patella continuing proximally and distally as necessary to allow access to the knee joint. Dissection continued through skin and soft tissues using a scalpel. Hemostasis was obtained using electrocautery. The skin incision was followed by a median parapatellar arthrotomy. The leg was extended and the patella was able to be displaced laterally.? Appropriate arrays and markers were placed in appropriate position for use of the Eric.? Preoperative planning had been accomplished and was discussed in detail with the [facility] sales representative groceries.? Intraoperative mapping of the femur and tibia was accomplished after the arrays were placed.? Internal markers were also placed.? Once we had accomplished the Eric mapping, we began the appropriate resections for placement of the prosthesis.? The plan was for a cruciate retaining right total knee arthroplasty. Once appropriate mapping had been accomplished retraction was established using manual retraction by surgical technicians and also the Eric leg positioner and retractors.? The knee was evaluated.? There was significant osteoarthritic change as well as slight flexion contracture.? Appropriate bone resection was accomplished using the Eric.? The femur was sized to a size 6.? Following femoral cuts, attention was directed to the tibia to confirm appropriate size of the tibial tray. The tibial osteotomy had been initiated at the beginning of the Eric procedure, the proximal tibial resection was removed, and the proximal tibia was measured.? Osteophytes were removed prior to this portion of the procedure.? We performed a medial release at the beginning of the procedure to allow for placement of the array.? Proximal tibia was evaluated, and it was felt that appropriate size for the tibia was a size 6.? Tray was noted to fit nicely with good coverage. A trial reduction was accomplished after osteophytes have been removed as well as the medial and lateral menisci.? We preserved the posterior cruciate ligament, and the anterior cruciate ligament was noted to be absent at the beginning of the case with significant encroachment upon the notch by osteophytes.? Trial reduction was accomplished with a size 6 femoral cruciate retaining component and a size 6 CS tibial bearing insert which was 9 mm in thickness.? There was noted to be tightness in both flexion and extension. Therefore, further resection was accomplished with the Eric to allow full extension and loosening in both flexion and extension. At that point, balance was felt to be good, alignment was felt to be appropriate as well.? Trial components were removed after the femur had been drilled.? Prior to removal of the tibial tray which had been pinned in position with appropriate rotation as determined by the Eric plan, we broached the tibia.? Subsequently, the 4 drill holes were made for the prosthetic component.? All trial components were removed, and the wound was irrigated.? Plans were made for insertion of the prosthetic components.? Prior to this, the patella was manually prepared.? After resection of the articular surface with the jigging system, it was measured and measured a 38 mm patella.? We resected approximately 11 mm of patella.? Patellar height was restored with the patellar component. Once again, the wound was irrigated.? The Tritanium tibia was impacted into position.? The beaded femur was then impacted into position in a cementless fashion. The CS tibial insert was placed prior to placement of the femoral component. The patella was pressed into position with a patellar clamp.? Exparel was injected about the components deep and superficially.? The knee was then copiously irrigated with betadine and saline and suctioned dry. Attention was then directed to closure. Closure was accomplished with 0 Vicryl in the fascial tissues.? The suture line of 0 Vicryl was supplemented with strata fix, #1, with a running stitch from proximal to distal and a second running stitch from distal to proximal.? This was followed by Surgiflo and vancomycin powder.? Following this, a 2-0 Monocryl was used in the subcutaneous tissues, and the skin was closed with 3-0 Strata fix.? Care was taken to assure an excellent subcutaneous as well as skin closure.? A sterile dressing was then placed consisting of Dermabond Prineo, OpSite, ABD, sterile soft roll, and an Lenny wrap including over the foot. The patient was returned the Recovery Room in a satisfactory condition. X-rays were obtained and reviewed there.? The patient will be discharged to the floor for postoperative rehabilitation and pain management. Related Problem List Diagnoses (1) Primary osteoarthritis of right knee:
--- NOTE | 2024-11-11 11:51 | XRR_ITS ---
PROCEDURE INFORMATION: Exam: XR Right Knee Exam date and time: 11/11/2024 11:49 AM Age: 79 years old Clinical indication: Device placement; Joint replacement hardware; Prior surgery; Surgery date: Post-operative (0-2 days); Surgery type: Post op total knee replacement TECHNIQUE: Imaging protocol: Radiologic exam of the right knee. Views: 1 or 2 views. COMPARISON: CT knee RT [facility] [id number] 10/06/2024 2:35 PM FINDINGS: Bones/joints: Postsurgical changes of recent knee arthroplasty. No distinct radiographic evidence of hardware complication. Soft tissues: Expected subcutaneous and intra-articular air. Expected postoperative changes of the anterior knee soft tissues. XR/XR knee RT 1-2V [id number] IMPRESSION: Postsurgical changes of recent knee arthroplasty. No distinct radiographic evidence of hardware complication.
--- NOTE | 2024-11-11 12:25 | ANE.PACU2 ---
Inpatient post-anesthesia follow up: Airway intact: Yes Vital signs: Temperature 98.2 F Pulse Rate 62 Respiratory Rate 18 Blood Pressure 106/64 Pulse Oximetry 95 Oxygen Delivery Me thod Room Air Oxygen Flow Rate 6 Fraction of Inspir ed Oxygen Hydration adequate: Yes Nausea and vomiting: No Pain level: 1 Mental status: Baseline
[2024-11-11] MEDS: oxyCODONE 5 mg IR Tab/Cap PO (13:25)
[2024-11-11] MEDS: chlorhexidine gluconate 0.12% Btl 473 mL 30 ML MUCOUS MEM ×3 (13:26→21:02)
[2024-11-11] MEDS: CELEcoxib 200 mg Capsule PO ×2 (13:26→23:34)
[2024-11-11] MEDS: iron polysaccharide complex 150 mg Capsule PO (17:37)
[2024-11-11] MEDS: calcium carbonate 500 mg Chew Tablet 1000 MG PO (17:37)
[2024-11-11] MEDS: losartan 50 mg Tablet 25 MG PO (17:37)
[2024-11-11] MEDS: mupirocin oint 22 gm 1 APPLIC NASAL (17:37)
[2024-11-11] MEDS: sennosides-docusate Tablet 2 TAB PO (17:37)
[2024-11-12] VITALS: BP 132/55; PULSE 69; RESP 17; TEMP 36.8; O2SAT 95
[2024-11-12 04:00] VITALS: BP 121/65; PULSE 66; RESP 18; TEMP 36.8; O2SAT 95
[2024-11-12 05:31] LABS: Basophils % 0.3 %; Eosinophils % 0.1 %; Hematocrit 28.7 % (37-53); Lymphocytes # 1.6 10^3/uL (0.8-4.8); Lymphocytes % 15.1 %; Mean Corpuscular HGB Conc 32.1 g/dL (30-55); Mean Corpuscular Hemoglobin 31.5 pg (27-33); Mean Corpuscular Volume 98.3 fl (82-101); Mean Platelet Volume 10.2 fL (7.4-10.4); Monocytes # 1.4 10^3/uL (0.2-0.9); Monocytes % 13.8 %; Neutrophils # 7.27 10^3/uL (1.8-7.7); Neutrophils % 70.4 %; Nucleated Red Blood Cells % 0 %; Platelet Count 274 10^3/cmm (157-399); Red Blood Count 2.92 10^6/uL (3.85-5.65); Red Cell Distribution Width 12.6 % (12.1-15.1); White Blood Count 10.32 10^3/uL (3.29-11.43)
[2024-11-12 06:02] LABS: Anion Gap 14.5 (5-19); Blood Urea Nitrogen 29 mg/dL (8-23); Calcium 8.2 mg/dL (8.5-10.5); Carbon Dioxide 22 mmol/L (22-29); Chloride 104 mmol/L (98-107); Creatinine Clr Calc Pharmacy 41.7765; Glucose 207 mg/dL (65-115); Osmolality Calculated 294 mOsm/kg (285-295); Potassium 4.5 mmol/L (3.5-5.1); Sodium 136 mmol/L (136-145)
[2024-11-12] MEDS: acetaminophen 1,000 MG/100 ML PIGGYBACK 400 MG IV (06:10)
--- NOTE | 2024-11-12 06:33 | PC.NURSE ---
Patient educated that taking pain medication prior to doing physical therapy can make physical therapy easier and less painful. Patient refusing pain medication.
[2024-11-12 08:21] VITALS: BP 124/76; PULSE 61; RESP 17; TEMP 36.8; O2SAT 95
[2024-11-12] MEDS: calcium carbonate 500 mg Chew Tablet 1000 MG PO (08:45)
[2024-11-12] MEDS: cholecalciferol (vitamin D3) 1,000 unit Tablet 1000 UNIT PO (08:45)
[2024-11-12] MEDS: allopurinol 100 mg Tablet PO (08:45)
[2024-11-12] MEDS: sennosides-docusate Tablet 2 TAB PO (08:45)
[2024-11-12] MEDS: multivitamin therapeutic Tablet 1 TAB PO (08:45)
[2024-11-12 08:46] VITALS: BP 124/76
[2024-11-12] MEDS: iron polysaccharide complex 150 mg Capsule PO (08:46)
[2024-11-12] MEDS: losartan 50 mg Tablet 25 MG PO (08:46)
[2024-11-12] MEDS: chlorhexidine gluconate 0.12% Btl 473 mL 30 ML MUCOUS MEM (08:46)
[2024-11-12] MEDS: aspirin 325 mg EC Tablet PO (08:46)
[2024-11-12] MEDS: ceFAZolin 2,000 mg SDV 2000 MG IVP (08:46)
[2024-11-12] MEDS: mupirocin oint 22 gm 1 APPLIC NASAL (08:47)
--- NOTE | 2024-11-12 09:32 | PC.CHAP ---
Pastoral Care Encounter/Spiritual Assessment Type of Contact [] Declined ironer visit [] Patient/Family/Request visit [] Outpatient visit [] Follow-up visit [] Physician referral [] Code/Alert [x] Routine visit [] Staff referral [] Actively dying [] Patient sleeping [x] Family support [] [] Out of room [] Palliative care [] [] Receiving care in room [] Pre-surgical visit [] Trauma [] Long length of stay [] ICU visit [] Other: Relational/Emotional Strength [x] Patient feels connected with others/family/visitors/staff [] Distress [] Loneliness/isolation [] Abandonment Spirituality of Patient [x] Person of Ness [] Attends Taoism of their Ness [x] Believes in Prayer [] Reads Bible or Hinduism materials [] There are Spiritual issues to be addressed Electricians Top Helper Interventions [x] Prayer [x] Active listening [] Non-anxious presence [x] Spiritual/emotional support [] Crisis/trauma care [] Spiritual counseling [] Bereavement support [] Provided bereavement packet [] Provided Bible/devotional materials [] Provided toy/stuffed animal, coloring book to patient or family member [] Provided Communion [] Anointing/[place] [] Salvation [x] Completed spiritual assessment [] Other: Impact on Illness or Injury [] Angry [] Fearful [] Anxious [] Often cries [] Exhaustion [] Unable to work [] Unable to attend yarsani [] Unable to walk/stand [] Unable to read [] Unable to drive [] Unable to eat/drink [] Unable to sleep [] Unable to be with family [] Patient intubated [] Other: Summary Time spent with patient 5 min
[2024-11-12 11:27] VITALS: BP 136/73; PULSE 60; RESP 17; TEMP 36.6; O2SAT 95
--- NOTE | 2024-11-12 12:59 | P.DS_ITS ---
Discharge Providers Date of Admission: 11/11/24 11:05 Date of Discharge: November 12, 2024 Attending Provider at Admission: Aracelis Manzo MD Attending Provider at Discharge: Aracelis Manzo MD Primary Care Provider: [place] Arredondo DO Diagnoses at Discharge Discharge Diagnosis (1) Primary osteoarthritis of right knee: Status: Acute (2) Status post total right knee replacement not using cement: Status: Acute Permanent problem details: Date of procedure: November 11, 2024 Diagnosis: Severe degenerative osteoarthritis right knee with large osteophytes, varus deformity, and severe flexion contracture Procedure done: Right total knee arthroplasty with Eric guidance Implants: [employer] total knee system with a size 6 triathlon beaded cruciate retaining femur right, a triathlon titanium tibial component size 6 beaded, a triathlon X3 tibial bearing CS insert size 6 X 10 mm and a beaded triathlon titanium asymmetric patella size 38 x 11 mm Reason for Visit Reason for Visit: M17.11 Brief History: This 79-year-old gentleman presents today for right total knee arthroplasty. The patient previously underwent left total knee arthroplasty in August of this year. He has done well following this. He had multiple nonoperative therapies prior to proceeding with total knee arthroplasty. The patient has significant varus deformity and flexion contracture of the knee. In fact, he had significant deformities in the opposite knee, and following fixation of this feels a leg length difference. Risks and complications of surgery were discussed with him in the office. He wished to proceed with total knee arthroplasty under Eric guidance. Consents were signed and questions were answered. Hospital Course Hospital Course This 79-year-old gentleman presented for right total knee arthroplasty. Surgical procedure was uneventful, and postoperatively, he was admitted to the hospital under observation status for postoperative rehabilitation and pain management. He did well postoperatively requiring very little pain medication. He participated with physical therapy and was felt to be safe for discharge to home. Therefore, the patient was discharged home to follow-up with me in the office as previously scheduled. He had no evidence of DVT or other postoperative complications. Physical Exam Const: COMMON NORMALS: no acute distress, average body habitus, patient oriented x3 and alert GENERAL APPEARANCE: cooperative and comfortable ORIENTATION/CONSCIOUSNESS: Yes awake HENMT: COMMON NORMALS: normocephalic and atraumatic HEAD & SCALP: normocephalic and atraumatic Eye: GENERAL EYE: appearance normal, both eyes and all related structures Chest: COMMONS NORMALS: normal inspection of the chest Resp: COMMON NORMALS: normal respiratory effort EFFORT & INSPECTION: Yes able to speak in complete sentences and Yes symmetric chest movement Extremity: RIGHT LOWER EXTREMITY: Yes knee joint (Large outer dressing was removed. Under dressing remained intact) Right knee: Yes inspection (No significant ecchymosis), Yes palpation (Minimal discomfort), Yes ROM (Not evaluated) and Yes neurovascular exam (Intact distally with no evidence of DVT) Neuro: COMMON NORMALS: patient oriented x3 SENSORIUM/ORIENTATION: Yes alert Psych: COMMON NORMALS: mental status grossly normal APPEARANCE: Yes grossly normal ATTITUDE: Yes calm and Yes engaged ATTENTION/CONCENTRATION: Yes attention grossly intact Skin: COMMON NORMALS: no rashes or lesions noted GENERAL SKIN EXAM: no rashes or lesions noted Urinary Catheter Management: Montilla: Cath Placed During This Visit: yes, but has since been removed by the nurse Reason for Continuing Indwelling Catheter: Decision to DC Catheter Urinary Catheter Date of Insertion: 11/11/24 Urinary Catheter Time of Insertion: 08:05 Date Urinary Catheter Removed: 11/12/24 Time Urinary Catheter Discontinued: 06:08 Discharge Data Studies Completed and Pending Completed Studies During Hospitalization Category Date Time Status XR knee RT 1-2V [id number] Routine Exams 11/11/24 11:51 Completed Radiology Impressions Knee X-Ray 11/11/24 11:51 IMPRESSION: Postsurgical changes of recent knee arthroplasty. No distinct radiographic evidence of hardware complication. Laboratory Results WBC 10.32 10^3/uL (3.29-11.43) 11/12/24 05:10 RBC 2.92 10^6/uL (3.85-5.65) L 11/12/24 05:10 Hgb 9.20 g/dL (11.27-16.99) L 11/12/24 05:10 Hct 28.7 % (37-53) L 11/12/24 05:10 MCV 98.3 fl (82-101) 11/12/24 05:10 MCH 31.5 pg (27-33) 11/12/24 05:10 MCHC 32.1 g/dL (30-55) 11/12/24 05:10 RDW 12.6 % (12.1-15.1) 11/12/24 05:10 Plt Count 274 10^3/cmm (157-399) 11/12/24 05:10 MPV 10.2 fL (7.4-10.4) 11/12/24 05:10 Neut % (Auto) 70.4 % 11/12/24 05:10 Lymph % (Auto) 15.1 % 11/12/24 05:10 [place] % (Auto) 13.8 % 11/12/24 05:10 Eos % (Auto) 0.1 % 11/12/24 05:10 Baso % (Auto) 0.3 % 11/12/24 05:10 Neut # (Auto) 7.27 10^3/uL (1.8-7.7) 11/12/24 05:10 Lymph # (Auto) 1.6 10^3/uL (0.8-4.8) 11/12/24 05:10 [place] # (Auto) 1.4 10^3/uL (0.2-0.9) H 11/12/24 05:10 Eos # (Auto) 0.0 10^3/uL (0.0-0.8) 11/12/24 05:10 Baso # (Auto) 0.0 10^3/uL (0.0-0.1) 11/12/24 05:10 Nucleated RBC % (auto) 0 % 11/12/24 05:10 Nucleated RBCs # 0.0 /100WBC 11/12/24 05:10 Sodium 136 mmol/L (136-145) 11/12/24 05:10 Potassium 4.5 mmol/L (3.5-5.1) 11/12/24 05:10 Chloride 104 mmol/L (98-107) 11/12/24 05:10 Carbon Dioxide 22 mmol/L (22-29) 11/12/24 05:10 Anion Gap 14.5 (5-19) 11/12/24 05:10 BUN 29 mg/dL (8-23) H 11/12/24 05:10 Creatinine 1.8 mg/dL (0.7-1.2) H 11/12/24 05:10 GFR Calculation Not Reportable 11/12/24 05:10 Glucose 207 mg/dL (65-115) H 11/12/24 05:10 Calculated Osmolality 294 mOsm/kg (285-295) 11/12/24 05:10 Calcium 8.2 mg/dL (8.5-10.5) L 11/12/24 05:10 Vitals Last Vital Signs Temp 97.8 F 11/12/24 11:27 Pulse 60 11/12/24 11:27 Resp 17 11/12/24 11:27 BP 136/73 11/12/24 11:27 Pulse Ox 95 11/12/24 11:27 O2 Del Method Room Air 11/12/24 11:27 O2 Flow Rate 6 11/11/24 11:52 Discharge Plan Discharge Patient Disposition: Home Health Service Condition: Stable Prescriptions: New acetaminophen 500 mg Tablet 1,000 mg PO Q8H 15 Days Qty: 90 0RF aspirin 325 mg Tablet,Delayed Release (Dr/Ec) 325 mg PO DAILY 30 Days Qty: 0 0RF celecoxib 200 mg Capsule 200 mg PO 1XD 90 Days Qty: 90 0RF Continued allopurinol 100 mg tablet 100 mg PO QDAY Qty: 100 0RF losartan 25 mg tablet 25 mg PO BID Qty: 180 3RF triamterene-hydrochlorothiazid 37.5-25 mg tablet 1 tab PO QAM Qty: 100 5RF Discharge Orders: Discharge Order (Routine); Ordered 11/12/24 Ordered By: Aracelis Manzo Referrals: Aracelis Manzo MD [Physician] - 11/26/24 11:00 am Discharge Diet: Advance as tolerated and Usual diet Discharge Activity: Increase activity as tolerated, Limit activity as instru cted, Use walker/crutches as instructed and As per PT/OT instructions Patient Instructions: Celecoxib (By mouth), Acute Wound Care (DC), Total Knee Replacement (GEN), Opioid Safety, Post Anesthesia Care Activity Restrictions/Additional Instructions: Ice and elevation to right lower extremity. You may weight-bear as tolerated. Physical therapy per home health and physical therapy. Range of motion, strengthening, and gait training per physical therapy. Discharge Attestations Time Spent in Discharge Care*: greater than 30 min Specific Discharge Activities: educating patient, documenting/other paperwork and evaluating patient/reviewing data Quality Metrics Clinical Quality Measures [ No reported AMI, CVA or VTE this stay] Coding Level of Care Code Acute Code for Chg Fwd Diagnoses Primary osteoarthritis of right knee M17.11 Status post total right knee replacement not using cement Z96.651
--- NOTE | 2024-11-12 16:20 | PC.OT ---
OT EVALUATION ATTEMPTED IN A.M. AND PATIENT WAS SLEEPING SOUNDLY/ SNORING. AT P.M. ATTEMPT PATIENT HAD BEEN D/C
== END 2024-11-12 13:55 | disposition home health service (06) ==
LOC: MEDSURG 11:06
PROVIDERS: Admitting Provider Specialist; PCP Family Medicine; Visit Provider Specialist
PROC: 8E0Y0CZ Robotic Assisted Procedure of Lower Extremity, Open Approach (ICD-10-PCS; CPT 27447; principal; 2024-11-11 08:10)
DX: M17.11 Unilateral primary osteoarthritis, right knee (principal); M25.761 Osteophyte, right knee; M24.561 Contracture, right knee; G47.33 Obstructive sleep apnea (adult) (pediatric); Z86.79 Personal history of other diseases of the circulatory system; M21.161 Varus deformity, not elsewhere classified, right knee; I10 Essential (primary) hypertension
CPT/HCPCS: 27447; 20985; 51702; 73560; 80048; 85025; 97110; 97116; 97161; A4216; C1776; G0378; J0131; J0666; J0690; J1100; J2371; J2405; J2704; J3010; J3370; J3490; J7030; J9999; P9045

== ENCOUNTER → 2024-11-26 11:03 | Outpatient (BNVA) | payer MEDICARE, SELFPAY | PROVIDERS: PCP Family Medicine; Visit Provider Specialist | DX: Z98.890 Other specified postprocedural states (principal); Z96.651 Presence of right artificial knee joint | CPT/HCPCS: 73560; 73565; 99024 ==

== ENCOUNTER 2024-12-03 09:58 | Outpatient (RCR) | payer MEDICARE, SELFPAY | END 2024-12-03 23:59 | disposition home or self-care (01) | LOC: SPT 09:58 | PROVIDERS: Visit Provider Specialist | DX: Z47.1 Aftercare following joint replacement surgery (principal); Z96.651 Presence of right artificial knee joint | CPT/HCPCS: 97161 ==

== ENCOUNTER 2024-12-04 05:00 | Outpatient (RCR) | payer MEDICARE, SELFPAY | END 2024-12-24 14:33 | disposition home or self-care (01) | LOC: SPT 05:00 | PROVIDERS: Visit Provider Specialist | DX: Z47.1 Aftercare following joint replacement surgery (principal); Z96.651 Presence of right artificial knee joint | CPT/HCPCS: 97110 ==